=== PATIENT | female | born 1980 | race Caucasian/White ===

== ENCOUNTER 2021-09-28 11:27 | Outpatient (CLI) | payer OTHER | END 2021-09-28 11:28 | disposition home or self-care (01) | LOC: CSHMAMMO 11:27 | PROVIDERS: ATTEND Obstetrics & Gynecology | DX: Z12.31 Encounter for screening mammogram for malignant neoplasm of breast (principal); Z80.3 Family history of malignant neoplasm of breast | CPT/HCPCS: 77063; 77067 ==

== ENCOUNTER 2022-10-26 09:47 | Outpatient (CLI) | payer OTHER | END 2022-10-26 09:48 | disposition home or self-care (01) | LOC: CSHMAMMO 09:47 | PROVIDERS: ATTEND Obstetrics & Gynecology | DX: Z12.31 Encounter for screening mammogram for malignant neoplasm of breast (principal); Z80.3 Family history of malignant neoplasm of breast | CPT/HCPCS: 77063; 77067 ==

== ENCOUNTER 2025-01-28 07:59 | Outpatient (CLI) | payer OTHER | END 2025-01-28 08:00 | disposition home or self-care (01) | LOC: CSHMAMMO 07:59 | PROVIDERS: ATTEND Obstetrics & Gynecology | DX: N64.4 Mastodynia (principal) | CPT/HCPCS: G0279 ==